=== PATIENT | male | born 1995 | race Caucasian/White ===

== ENCOUNTER → 2016-09-02 | Outpatient (CLI) | payer BC | LOC: LAB 10:00 | DX: R11.14 Bilious vomiting (principal); J02.8 Acute pharyngitis due to other specified organisms ==

== ENCOUNTER 2016-10-17 14:21 | Emergency (ER) | payer BC ==
[~2016-10-17] VITALS: Ht 175.3 cm; Wt 104.5 kg
[2016-10-17 15:06] VITALS: BP 150/109
== END 2016-10-17 15:07 | disposition home or self-care (01) ==
LOC: ED 14:21
DX: S91.341A Puncture wound with foreign body, right foot, initial encounter (principal); Z23 Encounter for immunization; W26.8XXA Contact with other sharp object(s), not elsewhere classified, initial encounter; W45.8XXA Other foreign body or object entering through skin, initial encounter; Y92.828 Other wilderness area as the place of occurrence of the external cause
CPT/HCPCS: 90715

== ENCOUNTER → 2017-03-26 | Outpatient (CLI) | payer SELFPAY ==
[~2017-03-26] MED LIST: KETOROLAC10 MG PO
== END ==
LOC: RAD 12:22
DX: R10.813 Right lower quadrant abdominal tenderness (principal); R19.5 Other fecal abnormalities

== ENCOUNTER 2017-03-27 02:30 | Emergency (ER) | payer SELFPAY ==
[~2017-03-27] VITALS: Ht 175.3 cm; Wt 109.1 kg
[2017-03-27 03:40] LABS: EOS # 0.1 (0.04-0.40); EOS % 0.7 % (0.0-4.0); HEMATOCRIT 44.5 % (42.0-52.0); HEMOGLOBIN 15.6 g/dL (13.5-18.0); LYMPH# 2.3 (1.50-4.00); MEAN CELL VOLUME 87 fl (78-100); MEAN CORPUSCULAR HEMOGLOBIN 30 pg (27-31); MEAN CORPUSCULAR HGB CONC 35 g/dL (33-37); MEAN PLATELET VOLUME 10.2 fl (7.4-10.4); MONO # 0.7 (0.20-0.80); NEU # 4.3 (1.40-6.50); PLATELET COUNT 306 K/mm3 (130-400); RED BLOOD COUNT 5.13 M/mm3 (4.20-5.60); RED CELL DISTRIBUTION WIDTH 12.5 % (11.5-14.5); WHITE BLOOD COUNT 7.4 K/mm3 (4.8-10.8)
[2017-03-27 03:54] LABS: ALBUMIN 4.6 g/dL (3.5-5.0); BUN/CREATININE RATIO 13.8 (6.0-26.0); CALCIUM 9.5 mg/dL (8.4-10.2); POTASSIUM 4.2 mmol/L (3.6-5.0); TOTAL PROTEIN 7.9 g/dL (6.3-8.2)
[2017-03-27] MEDS ORDERED: KETOROLAC10 MG PO (04:30)
[2017-03-27 04:36] VITALS: BP 120/75
== END 2017-03-27 04:36 | disposition home or self-care (01) ==
LOC: ED 02:30
PROVIDERS: Family Medicine
DX: M25.512 Pain in left shoulder (principal); R07.9 Chest pain, unspecified
CPT/HCPCS: J1885